=== PATIENT | male | born 1980 | race Caucasian/White ===

== ENCOUNTER 2019-04-09 19:21 | Emergency (ER) | payer MEDICARE ==
[~2019-04-09] VITALS: Ht 180.3 cm; Wt 113.6 kg
[2019-04-09 19:38] VITALS: Ht 180.3 cm; Wt 113.6 kg
[2019-04-09 19:57] LABS: BASOPHILS 0.2 % (0-2); EOSINOPHILS 1.1 % (0-7); HEMATOCRIT 46.9 % (42.0-54.0); HEMOGLOBIN 15.7 g/dL (13.5-17.5); IMMATURE GRANULOCYTES 0.2 % (0-5); MCH 30.4 pg (26.0-34.0); MCHC 33.5 g/dL (31.0-37.0); MCV 90.7 fL (80.0-100.0); MEAN PLATELET VOLUME 9.1 fL (7.4-10.4); MONOCYTES 9.2 % (2-11); NEUTROPHILS 60.3 % (40-80); PLATELET COUNT 299 10x3/uL (130-400); RBC 5.17 10x6/uL (4.20-6.10); RDW 12.5 % (11.5-14.5); WBC 6.4 10x3/uL (4.8-10.8)
[2019-04-09 20:11] LABS: CALC OSMOLALITY 282 mosm/kg (275-300); CALCIUM 9.2 mg/dL (8.5-10.1); CARBON DIOXIDE 29.2 mmol/L (21.0-32.0); CHLORIDE - SERUM 104 mmol/L (98-107); CREATININE - SERUM 1.2 mg/dL (0.6-1.3); GLUCOSE 106 mg/dL (74-106); POTASSIUM - SERUM 3.8 mmol/L (3.5-5.1); SODIUM 141 mmol/L (136-145); UREA NITROGEN 17 mg/dL (7-18); eGFR NON AFRICAN AMERICAN 72 mL/min (90-120)
[2019-04-09 20:28] LABS: ALBUMIN 4.2 g/dL (3.4-5.0); ALKALINE PHOSPHATASE 74 U/L (46-116); ALT (SGPT) 46 U/L (10-68); BILIRUBIN - TOTAL 0.44 mg/dL (0.2-1.3); PRO BNP 19 pg/mL (0-125)
[2019-04-09 20:31] LABS: TROPONIN-I < 0.017 ng/mL (0.000-0.060)
[2019-04-09] MEDS ORDERED: CATAPRES0.1 MG PO ×2 (21:06→21:07)
[2019-04-09 21:11] VITALS: BP 140/93
== END 2019-04-09 21:11 | disposition home or self-care (01) ==
LOC: D.ER 19:21
PROVIDERS: Family Medicine
DX: R07.9 Chest pain, unspecified (principal); I10 Essential (primary) hypertension; F17.210 Nicotine dependence, cigarettes, uncomplicated

== ENCOUNTER → 2019-06-17 13:45 | Outpatient (CLI) | payer BC ==
[2019-04-09 19:38] VITALS: BMI 34.9
[~2019-06-17 13:45] MED LIST: CATAPRES0.1 MG PO
== END | disposition home or self-care (01) ==
LOC: D.HCCARDIO 13:45
PROVIDERS: ATTEND Internal Medicine Cardiovascular Disease
DX: I20.9 Angina pectoris, unspecified (principal)